=== PATIENT | male | born 1990 | race Caucasian/White ===

== ENCOUNTER 2022-09-29 06:57 | Outpatient (CLI) | payer MEDICAID, SELFPAY ==
--- NOTE | 2022-09-29 07:30 | US_ITS ---
WS: [id number] TESTICULAR ULTRASOUND HISTORY: N50.819 - Testicular pain, unspecified COMPARISON: None available. TECHNIQUE: Real-time and color Doppler imaging or utilized to perform a testicular ultrasound. Right testicle: 4.7 cm x 3.6 cm x 2.3 cm. Normal size and echogenicity. No mass or torsion. Normal color Doppler is present throughout. Systolic and diastolic velocities are both present. No significant hydrocele. Right epididymis: Normal epididymis with no increased vascularity. Left testicle: 4.1 cm x 3.2 cm x 2.6 cm. Normal size and echogenicity. No mass or torsion. Normal color Doppler is present throughout. Systolic and diastolic velocities are both present. No significant hydrocele. Left epididymis: Normal epididymis with no increased vascularity. US/US scrotum [id number] IMPRESSION: NORMAL TESTICULAR ULTRASOUND.
== END 2022-09-29 06:58 | disposition home or self-care (01) ==
LOC: RAD 07:01
PROVIDERS: PCP Family Medicine; Visit Provider Nurse Practitioner
DX: N50.819 Testicular pain, unspecified (principal)
CPT/HCPCS: 76870